=== PATIENT | female | born 1980 | race Caucasian/White ===

== ENCOUNTER 2019-12-30 20:18 | Emergency (ER) | payer OTHER ==
[~2019-12-30] VITALS: Ht 172.7 cm; Wt 91.0 kg
[2019-12-30 21:37] VITALS: BP 165/99
[2019-12-31] MEDS ORDERED: CEPH-264 PO (00:10)
--- NOTE | 2019-12-31 00:10 | PHYS DOC ---
Past History Past Medical History: Other Past Surgical History: Tonsillectomy, Other Alcohol Use: None Adult General Chief Complaint Chief Complaint: OTHER COMPLAINTS HPI HPI Patient is a 39 year old female who presents with complaint of puncture wound to the right foot. 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 As she was going through wooden planks she states that she accidentally stepped onto a plank with a needle sticking out of it. This went through the rubber sole of her boot and into the ball of her foot. She states that the puncture was superficial. She came to the emergency department as she is not up-to-date on tetanus immunization and was intending to receive a tetanus booster. Denies any other injuries. Has not taken any medications for her symptoms. Review of Systems Review of Systems Constitutional: Denies fever or chills [] Musculoskeletal: Denies back pain or joint pain [] Integument: Puncture wound to right foot, denies rash [] Neurologic: Denies headache, focal weakness or sensory changes [] All other systems were reviewed and found to be within normal limits, except as documented in this note. Current Medications Current Medications Current Medications Medications (Trade) Dose Ordered Sig/Verena Start Time Stop Time Status Last Admin Dose Admin Cephalexin HCl (Keflex) 500 mg 1X ONCE 12/31/19 00:30 12/31/19 00:31 Diphtheria/ Pertussis/Tetanus Vacc (ADACEL TDap SYRINGE) 0.5 ml ONCE ONCE 12/31/19 00:30 12/31/19 00:31 Allergies Allergies Allergies Coded Allergies Type Severity Reaction Last Updated Verified hydrocodone Allergy Unknown 12/30/19 Yes sulfamethoxazole Allergy Unknown 12/30/19 Yes trimethoprim Allergy Unknown 12/30/19 Yes Physical Exam Physical Exam Constitutional: Well developed, well nourished, no acute distress, non-toxic appearance. [] Skin: Warm, dry, no erythema, no rash. [] Extremities: Superficial puncture wound present over ball of right foot with mild direct tenderness, no surrounding induration or erythema, full range of motion in right foot is present. [] Neurologic: Alert and oriented X 3, normal motor function, normal sensory function, no focal deficits noted. [] Current Patient Data Vital Signs Vital Signs Date Time Temp Pulse Resp B/P (MAP) Pulse Ox O2 Delivery O2 Flow Rate FiO2 12/30/19 21:37 97.9 92 16 165/99 (121) 98 Room Air Lab Results Not performed EKG EKG Not performed [] Radiology/Procedures Radiology/Procedures Not performed [] Course & Med Decision Making Course & Med Decision Making Pertinent Labs and Imaging studies reviewed. (See chart for details) Patient was administered tetanus immunization in the emergency department. Given that the nail went through the sole of her shoe, I did consumer credit counselor patient on need for thorough wound care as her wound care is a higher risk of infection. The patient was started on oral Keflex and will continue on 5-day course for treatment. Advised follow-up with primary doctor in the next 3 to 5 days for reevaluation and advised return to the emergency department for any worsening symptoms. Patient voiced understanding and in agreement with treatment plan. [] Dragon Disclaimer Dragon Disclaimer This electronic medical record was generated, in whole or in part, using a voice recognition dictation system. Departure Departure: Impression: Primary Impression: Puncture wound of foot, right Additional Impression: Need for Tdap vaccination Disposition: HOME/RESIDENCE PRIOR TO ADM Condition: STABLE Referrals: SEGUNDO CANCHOLA (PCP) Patient Instructions: Puncture Wound Additional Instructions: Follow-up with your primary doctor in the next 3 to 5 days for reevaluation. Return to the emergency department for any worsening symptoms. Scripts Cephalexin (KEFLEX) 500 Mg Capsule 1 CAP PO BID for 5 Days, #10 CAP 0 Refills Prov: MARCIA CHAVEZ MD 12/31/19 Justification of Admission: Justification of Admission: Justification of Admission Dx: N/A Problem Qualifiers Primary Impression: Puncture wound of foot, right Encounter type: initial encounter Qualified Codes: S91.331A - Puncture wound without foreign body, right foot, initial encounter MARCIA CHAVEZ MD Dec 31, 2019 00:10
[2019-12-31] MEDS ORDERED: DIPH,PERTUSS(ACELL),TET VAC/PF 0.5 ML SYRINGE. VAX IM ONE (00:30)
[2019-12-31] MEDS ORDERED: CEPHALEXIN 250 MG CAPSULE PO ONE (00:30)
== END 2019-12-31 00:20 | disposition home or self-care (01) ==
LOC: ER 20:18
DX: S91.331A Puncture wound without foreign body, right foot, initial encounter (principal); Z23 Encounter for immunization; Z88.5 Allergy status to narcotic agent; Z88.2 Allergy status to sulfonamides; Z88.1 Allergy status to other antibiotic agents; W45.0XXA Nail entering through skin, initial encounter; Y93.89 Activity, other specified; Y92.89 Other specified places as the place of occurrence of the external cause; Y99.0 Civilian activity done for income or pay
CPT/HCPCS: 90471; 90715; 99283

== ENCOUNTER 2020-06-18 15:12 | Emergency (ER) | payer OTHER ==
[~2020-06-18] VITALS: Ht 172.7 cm; Wt 96.0 kg
[~2020-06-18 15:12] MED LIST: CEPH-264 PO
[2020-06-18 15:20] VITALS: BP 137/96
--- NOTE | 2020-06-18 15:48 | PHYS DOC ---
Past History Past Medical History: Other Additional Past Medical Histor: PCOS, dry eyes Past Surgical History: Tonsillectomy, Other Additional Past Surgical Histo: septoplasty Alcohol Use: None General Adult EDM: Chief Complaint: LOWER EXT PAIN HPI: HPI: Patient is a 40-year-old female who presents with left lower leg pain. Patient reports that pain started yesterday. Patient describes as a pinching pain goes up from her ankle up to the back of her knee. Patient reports calling her PCP prior to arrival and suggested to be seen in the emergency room for an u ltrasound. Patient has a family history of DVTs. Patient denies taking anything for pain. Pain is worse with movement. Patient has history of PCOS. Review of Systems: Review of Systems: Constitutional: Denies fever or chills Eyes: Denies change in visual acuity HENT: Denies nasal congestion or sore throat Respiratory: Denies cough or shortness of breath Cardiovascular: Denies chest pain or edema GI: Denies abdominal pain, nausea, vomiting, bloody stools or diarrhea : Denies dysuria Musculoskeletal: Reports left lower leg pain, denies back pain Integument: Denies rash Neurologic: Denies headache, focal weakness or sensory changes Endocrine: Denies polyuria or polydipsia Lymphatic: Denies swollen glands Psychiatric: Denies depression or anxiety Allergies: Allergies: Allergies Coded Allergies Type Severity Reaction Last Updated Verified hydrocodone Allergy Unknown 12/30/19 Yes sulfamethoxazole Allergy Unknown 12/30/19 Yes trimethoprim Allergy Unknown 12/30/19 Yes Physical Exam: PE: Constitutional: Well developed, well nourished, no acute distress, non-toxic appearance. [] HENT: Normocephalic, atraumatic, bilateral external ears normal, oropharynx moist, no oral exudates, nose normal. [] Eyes: PERRLA, EOMI, conjunctiva normal, no discharge. [] Neck: Normal range of motion, no tenderness, supple, no stridor. [] Cardiovascular:Heart rate regular rhythm, no murmur [] Lungs & Thorax: Bilateral breath sounds clear to auscultation [] Abdomen: Bowel sounds normal, soft, no tenderness, no masses, no pulsatile masses. [] Skin: Warm, dry, no erythema, no rash. [] Back: No tenderness, no CVA tenderness. [] Extremities: Left lower leg tenderness, no cyanosis, no clubbing, ROM intact, no edema, pulses intact [] Neurologic: Alert and oriented X 3, normal motor function, normal sensory function, no focal deficits noted. [] Psychologic: Affect normal, judgement normal, mood normal. [] Current Patient Data: Vital Signs: Vital Signs Date Time Temp Pulse Resp B/P (MAP) Pulse Ox O2 Delivery O2 Flow Rate FiO2 06/18/20 15:20 98.3 92 16 137/96 (110) 97 Room Air EKG: EKG: [] Radiology/Procedures: Radiology/Procedures: []NDICATION: Reason: left leg pain / Spl. Instructions: / History: COMPARISON: None. TECHNIQUE: Grayscale, color and doppler ultrasound images were obtained of the left lower extremity venous vasculature. LEFT: No thrombus identified in the common femoral vein, femoral vein, popliteal vein or visualized calf veins. IMPRESSION: * No thrombus identified in deep venous system of the left lower extremity. * 53 x 45 x 14 mm cystic structure within the popliteal fossa. Most common cause would be Schmid's cyst. Electronically signed by: Ryder Blackmon MD (06/18/2020 4:37 PM) [id number] Heart Score: C/O Chest Pain: No Risk Factors: Risk Factors: DM, Current or recent (<one month) smoker, HTN, HLP, family history of CAD, obesity. Risk Scores: Score 0 - 3: 2.5% MACE over next 6 weeks - Discharge Home Score 4 - 6: 20.3% MACE over next 6 weeks - Admit for Clinical Observation Score 7 - 10: 72.7% MACE over next 6 weeks - Early Invasive Strategies Course & Med Decision Making: Course & Med Decision Making Pertinent Labs and Imaging studies reviewed. (See chart for details) [] Patient is reporting left lower leg calf pain. Patient reports pain is a pinching. Pain radiates up to the back of her knee started yesterday. Denies injury.Ultrasound ordered to rule out DVT. Patient is reporting that she has a family history. Ultrasound of left lower leg shows a small Schmid's cyst. Negative for DVT. Dragon Disclaimer: Dragnayeli Disclaimer: This electronic medical record was generated, in whole or in part, using a voice recognition dictation system. Departure Departure: Impression: Primary Impression: Leg pain, left Disposition: 01 DC HOME SELF CARE/HOMELESS Condition: STABLE Referrals: SEGUNDO CANCHOLA (PCP) Patient Instructions: Pinched Nerve, Sciatica, [id number] Additional Instructions: You were seen in the emergency room for left lower leg pain. Ultrasound is negative for DVT. You most likely have sciatica. I am going to send you home with a muscle relaxer to take. Can also take ibuprofen for discomfort. Please return to the emergency room with worsening symptoms or concerns otherwise follow-up with your PCP. EMERGENCY DEPARTMENT GENERAL DISCHARGE INSTRUCTIONS Thank you for coming to [facility] (ED) today and trusting us with you care. We trust that you had a positivie experience in our Emergency Department. If you wish to speak to the department management, you may call the director at [phone]. YOUR FOLLOW UP INSTRUCTIONS ARE FOLLOWS: 1. Do you have a private Doctor? If you do not have a private doctor, please ask for a resource list of physicians or clinics that may be able to assist you with follow up care. 2. The Emergency Physician has interpreted your x-rays. The X-Ray specialist will also review them. If there is a change in the findings, you will be notified in 48 hours when at all possible. 3. A lab test or culture has been done, your results will be reviewed and you will be notified if you need a change in treatment. ADDITIONAL INSTRUCTIONS AND INFORMATION: 1. Your care today has been supervised by a physician who is specially trained in emergency care. Many problems require more than one evaluation for a complete diagnosis and treatment. We recommend that you schedule your follow up appointment as recommended to ensure complete treatment of you illness or injury. If you are unable to obtain follow up care and continue to have a problem, or if your condition worsens, we recommend that you return to the ED. 2. We are not able to safely determine your condition over the phone nor are we able to give sound medical advice over the phone. For these safety reasons, if you call for medical advice we will ask you to come to the ED for further evaluation. 3. If you have any questions regarding these discharge instructions please call the ED at [phone]. SAFETY INFORMATION: In the interest of safety, wellness, and injury prevention; we encourage you to wear your sealbelt, if you smoke; quite smoking, and we encourage family to use a protective helmet for bicycling and other sporting events that present an increased risk for head injury. IF YOUR SYMPTOMS WORSEN OR NEW SYMPTOMS DEVELOP, OR YOU HAVE CONCERNS ABOUT YOUR CONDITION; OR IF YOUR CONDITION WORSENS WHILE YOU ARE WAITING FOR YOUR FOLLOW UP APPOINTMENT; EITHER CONTACT YOUR PRIMARY CARE DOCTOR, THE PHYSICIAN WHOSE NAME AND NUMBER YOU WERE GIVEN, OR RETURN TO THE ED IMMEDIATELY. Scripts Cyclobenzaprine Hcl (CYCLOBENZAPRINE HCL) 10 Mg Tablet 1 TAB PO QHS for spasms, #30 TAB Prov: RIVER NAVARRETE APRN 06/18/20 RIVER NAVARRETE APRN Jun 18, 2020 15:48
--- NOTE | 2020-06-18 16:40 | RAD ---
INDICATION: Reason: left leg pain / Spl. Instructions: / History: COMPARISON: None. TECHNIQUE: Grayscale, color and doppler ultrasound images were obtained of the left lower extremity v enous vasculature. LEFT: No thrombus identified in the common femoral vein, femoral vein, popliteal vein or visualized calf ve ins. IMPRESSION: * No thrombus identified in deep venous system of the left lower extremity. * 53 x 45 x 14 mm cystic structure within the popliteal fossa. Most common cause would be Schmid's cy st. Electronically signed by: Ryder Blackmon MD (06/18/2020 4:37 PM) [id number]
[2020-06-18] MEDS ORDERED: CYCL-331 PO (16:56)
== END 2020-06-18 17:10 | disposition home or self-care (01) ==
LOC: ER 15:12
DX: M79.662 Pain in left lower leg (principal); Z90.89 Acquired absence of other organs; Z98.890 Other specified postprocedural states; Z88.5 Allergy status to narcotic agent; Z88.2 Allergy status to sulfonamides; Z88.8 Allergy status to other drugs, medicaments and biological substances
CPT/HCPCS: 93971; 99284

== ENCOUNTER 2021-01-02 12:47 | Emergency (ER) | payer OTHER ==
[~2021-01-02] VITALS: Ht 172.7 cm; Wt 98.6 kg
[~2021-01-02 12:47] MED LIST changes: +CYCL-331 PO
--- NOTE | 2021-01-02 13:25 | PHYS DOC ---
Past History Past Medical History: Other Additional Past Medical Histor: PCOS, dry eyes Past Surgical History: Tonsillectomy, Other Additional Past Surgical Histo: septoplasty Alcohol Use: None General Adult EDM: Chief Complaint: HYPERTENSION HPI: HPI: 40-year-old female presents with hypertension. She has been checking her blood pressure daily this week and it is consistently been 150s over 90s. This is higher than normal and she is concerned. She has also had some twinges of chest pain and shortness of breath. These episodes do not last very long and it feels like a pinching sensation and just makes her feel slightly short of breath. The symptoms are recent as well. The patient has had intermittent headache this week but is headache free at this time. [place] for 7 weeks. She has PCOS and is on spironolactone. She denies fever chills. She has no other complaints at this time. Review of Systems: Review of Systems: Constitutional: Denies fever or chills Eyes: Denies change in visual acuity HENT: Denies nasal congestion or sore throat Respiratory: shortness of breath Cardiovascular: Chest pain GI: Denies abdominal pain, nausea, vomiting, bloody stools or diarrhea : Denies dysuria Musculoskeletal: Denies back pain or joint pain Integument: Denies rash Neurologic: Denies headache, focal weakness or sensory changes Endocrine: Denies polyuria or polydipsia Lymphatic: Denies swollen glands Psychiatric: Denies depression or anxiety Allergies: Allergies: Allergies Coded Allergies Type Severity Reaction Last Updated Verified hydrocodone Allergy Unknown 12/30/19 Yes sulfamethoxazole Allergy Unknown 12/30/19 Yes trimethoprim Allergy Unknown 12/30/19 Yes Physical Exam: PE: Constitutional: Well developed, well nourished, obese, no acute distress, non- toxic appearance. [] HENT: Normocephalic, atraumatic, bilateral external ears normal, oropharynx moist, no oral exudates, nose normal. [] Eyes: PERRLA, EOMI, conjunctiva normal, no discharge. [] Neck: Normal range of motion, no tenderness, supple, no stridor. [] Cardiovascular: Heart rate 93, regular rhythm, no murmur [] Lungs & Thorax: Bilateral breath sounds clear to auscultation [] Abdomen: Bowel sounds normal, soft, no tenderness, no masses, no pulsatile masses. [] Skin: Warm, dry, no erythema, no rash. [] Back: No tenderness, no CVA tenderness. [] Extremities: No tenderness, no cyanosis, no clubbing, ROM intact, no edema. [] Neurologic: Alert and oriented X 3, normal motor function, normal sensory function, no focal deficits noted. [] Psychologic: Affect normal, judgement normal, mood normal. [] Current Patient Data: Vital Signs: Vital Signs Date Time Temp Pulse Resp B/P (MAP) Pulse Ox O2 Delivery O2 Flow Rate FiO2 01/02/21 13:06 97.3 99 16 152/104 (120) 98 Room Air EKG: EKG: Sinus rhythm, rate 82, normal axis, no ST elevation or depression. [] Radiology/Procedures: Radiology/Procedures: [] Impressions: INDICATION: Reason: SOB / Spl. Instructions: / History: COMPARISON: None. FINDINGS: Single view of chest obtained. No focal airspace consolidation. Cardiomediastinal contour unremarkable. No acute osseous abnormality. IMPRESSION: * No focal airspace consolidation or edema. Electronically signed by: Kinga Blackmon MD (01/02/2021 1:51 PM) [id number] DICTATED AND SIGNED BY: KINGA BLACKMON MD DATE: 01/02/21 135 CC: QIANA ÁLVAREZ DO; SEGUNDO CANCHOLA N ~MTH0 0 Heart Score: C/O Chest Pain: Yes HEART Score for Chest Pain: HEART Score for Chest Pain Response (Comments) Value History Slighlty/Non-Suspicious 0 ECG Normal 0 Age < 45 0 Risk Factors 1 or 2 Risk Factors 1 Troponin < Normal Limit 0 Total 1 Risk Factors: Risk Factors: DM, Current or recent (<one month) smoker, HTN, HLP, family hist ory of CAD, obesity. Risk Scores: Score 0 - 3: 2.5% MACE over next 6 weeks - Discharge Home Score 4 - 6: 20.3% MACE over next 6 weeks - Admit for Clinical Observation Score 7 - 10: 72.7% MACE over next 6 weeks - Early Invasive Strategies Course & Med Decision Making: Course & Med Decision Making Pertinent Labs and Imaging studies reviewed. (See chart for details) The patient's EKG is unremarkable. Her labs are unremarkable. Her troponin is negative. Her chest x-ray is negative for acute findings. The patient is hypertensive I have given her 20 mg of lisinopril and will discharge her with a prescription for these for 30 days so she can make an appoint with her doctor. She is stable for discharge at this time. [] Dwight Disclaimer: Dwight Disclaimer: This electronic medical record was generated, in whole or in part, using a voice recognition dictation system. Departure Departure: Impression: Primary Impression: Hypertension Qualified Codes: I10 - Essential (primary) hypertension Disposition: HOME / SELF CARE / HOMELESS Condition: STABLE Referrals: SEGUNDO CANCHOLA (PCP) Patient Instructions: Hypertension Scripts Lisinopril (LISINOPRIL) 20 Mg Tablet 1 TAB PO DAILY for hypertension, #30 TAB 0 Refills Prov: QIANA ÁLVAREZ DO 01/02/21 QIANA ÁLVAREZ DO Jan 02, 2021 13:24
[2021-01-02] MEDS ORDERED: LISINOPRIL 10 MG TABLET PO ONE (13:45)
[2021-01-02 13:48] LABS: U PREG PATIENT NEGATIVE (NEG)
--- NOTE | 2021-01-02 13:54 | RAD ---
INDICATION: Reason: SOB / Spl. Instructions: / History: COMPARISON: None. FINDINGS: Single view of chest obtained. No focal airspace consolidation. Cardiomediastinal contour unremarkable. No acute osseous abnormality. IMPRESSION: * No focal airspace consolidation or edema. Electronically signed by: Ryder Blackmon MD (01/02/2021 1:51 PM) [id number]
[2021-01-02 13:57] LABS: BILIRUBIN,URINE NEG (NEG); CLARITY,URINE CLEAR; COLOR,URINE YELLOW; GLUCOSE,URINE NEG (NEG); NITRITE,URINE NEG (NEG); UROBILINOGEN,URINE 0.2 mg/dL (0.2 mg/dL)
[2021-01-02 13:58] LABS: BACTERIA,URINE FEW /HPF (0-FEW); SQUAMOUS EPITHELIAL CELL,UR MOD /LPF; WBC,URINE OCC /HPF (0-4)
[2021-01-02 14:15] LABS: BASO # 0.1 x10^3/uL (0.0-0.2); BASO % 1 % (0-3); EOS # 0.1 x10^3/uL (0.0-0.7); EOS % 1 % (0-3); HEMATOCRIT 45.5 % (36.0-47.0); HEMOGLOBIN 15.2 g/dL (12.0-15.5); LYMPH # 2.1 x10^3/uL (1.0-4.8); LYMPH % 21 % (24-48); MEAN CORPUSCULAR HEMOGLOBIN 31 pg (25-35); MEAN CORPUSCULAR HGB CONC 33 g/dL (31-37); MEAN CORPUSCULAR VOLUME 94 fL (79-100); MONO # 0.7 x10^3/uL (0.0-1.1); MONO % 7 % (0-9); NEUT # 7.1 x10^3uL (1.8-7.7); NEUT % 70 % (31-73); PLATELET COUNT 411 x10^3/uL (140-400); RED BLOOD COUNT 4.84 x10^6/uL (3.50-5.40); RED CELL DISTRIBUTION WIDTH 12.8 % (11.5-14.5); WHITE BLOOD COUNT 10.1 x10^3/uL (4.0-11.0)
[2021-01-02 14:21] LABS: CALCIUM 9.9 mg/dL (8.5-10.1); CREATININE 0.7 mg/dL (0.6-1.0); GFR 91.8; POTASSIUM 4.4 mmol/L (3.5-5.1)
[2021-01-02 14:28] LABS: ALBUMIN 3.9 g/dL (3.4-5.0); TOTAL BILIRUBIN 0.4 mg/dL (0.2-1.0); TOTAL PROTEIN 7.9 g/dL (6.4-8.2)
[2021-01-02] MEDS ORDERED: LISI20TA18 PO (14:44)
[2021-01-02 14:52] VITALS: BP 145/92
--- NOTE | 2021-01-02 19:49 | EKG ---
[address] [address] Test Date: 2021-01-02 Test Time: 13:20:58 Pat Name: JOIE LUDWIG Department: Room: Gender: F Janitor Caretaker: : 1980 Requested By: QIANA ÁLVAREZ Order Number: [id number] Reading MD: Andrew Booth Measurements Intervals [place] Rate: 82 P: 59 KS: 142 QRS: 9 QRSD: 76 T: 16 QT: 346 QTc: 407 Interpretive Statements SINUS RHYTHM NORMAL ECG RI6.02 No previous ECG available for comparison Electronically Signed On 01-07-2021 12:57:01 CDT by Andrew Booth
== END 2021-01-02 15:05 | disposition home or self-care (01) ==
LOC: ER 12:47
DX: I10 Essential (primary) hypertension (principal); Z88.5 Allergy status to narcotic agent; Z88.2 Allergy status to sulfonamides; Z88.1 Allergy status to other antibiotic agents
CPT/HCPCS: 36415; 71045; 80053; 81001; 81025; 84484; 85025; 93005; 99285

== ENCOUNTER 2021-04-19 06:27 | Emergency (ER) | payer OTHER ==
[~2021-04-19] VITALS: Ht 172.7 cm; Wt 97.0 kg
[~2021-04-19 06:27] MED LIST changes: -CYCL-331 PO; +CYCL10TA19 PO; +LISI20TA18 PO
--- NOTE | 2021-04-19 06:55 | PHYS DOC ---
Past History Past Medical History: Other Additional Past Medical Histor: PCOS, dry eyes Past Surgical History: Tonsillectomy, Other Additional Past Surgical Histo: septoplasty Alcohol Use: None Adult General Chief Complaint Chief Complaint: UPPER EXTREMITY PAIN HPI HPI Patient is a 41-year-old female presenting via POV for chest pain. Onset was yesterday evening while at rest. Stated she had some substernal chest pressure and belching with radiation to right shoulder. States she took some Tums with relief of symptoms. Later she started having recurrent chest pressure that went to her left upper extremity down her left arm which concerned her. She called her [facility] nurse who ultimately recommended she come in for evaluation. Patient has history of PCOS otherwise no other pertinent medical issues. Denies any tobacco alcohol or drug use. No early cardiac disease in immediate family. No recent long distance travel, hemoptysis, sick contacts or estrogen use. She is fully vaccinated against COVID-19 Review of Systems Review of Systems Fourteen body systems of review of systems have been reviewed. See HPI for pertinent positives and negative responses, other bergman all other systems are negative, non-pertinent or non-contributory Allergies Allergies Allergies Coded Allergies Type Severity Reaction Last Updated Verified hydrocodone Allergy Unknown 12/30/19 Yes sulfamethoxazole Allergy Unknown 12/30/19 Yes trimethoprim Allergy Unknown 12/30/19 Yes Physical Exam Physical Exam Constitutional: Well developed, well nourished, no acute distress, non-toxic appearance. HENT: Normocephalic, atraumatic, bilateral external ears normal, oropharynx moist, no oral exudates, nose normal. Eyes: PERRLA, EOMI, conjunctiva normal, no discharge. Neck: Normal range of motion, no tenderness, supple, no stridor. Cardiovascular: Heart rate regular, sinus rhythm, no murmurs rubs or gallops Lungs & Thorax: Bilateral breath sounds clear to auscultation Abdomen: Bowel sounds normal, soft, no tenderness, no masses, no pulsatile masses. Nonsurgical abdomen, no peritoneal signs Skin: Warm, dry, no erythema, no rash. Back: No tenderness, no CVA tenderness. Extremities: No tenderness, no cyanosis, no clubbing, ROM intact, no edema. Neurologic: Alert and oriented X 3, grossly normal motor & sensory function, no focal deficits noted. Psychologic: Affect normal, judgement normal, mood normal. Current Patient Data Vital Signs Vital Signs Date Time Temp Pulse Resp B/P (MAP) Pulse Ox O2 Delivery O2 Flow Rate FiO2 04/19/21 06:50 97.6 92 18 127/102 (110) 97 Vital Signs Date Time Temp Pulse Resp B/P (MAP) Pulse Ox O2 Delivery O2 Flow Rate FiO2 04/19/21 06:50 97.6 92 18 127/102 (110) 97 Lab Results Laboratory Tests Test 04/19/21 07:30 White Blood Count 9.7 x10^3/uL Red Blood Count 4.65 x10^6/uL Hemoglobin 14.7 g/dL Hematocrit 44.1 % Mean Corpuscular Volume 95 fL Mean Corpuscular Hemoglobin 32 pg Mean Corpuscular Hemoglobin Concent 33 g/dL Red Cell Distribution Width 12.8 % Platelet Count 442 x10^3/uL Neutrophils (%) (Auto) 72 % Lymphocytes (%) (Auto) 23 % Monocytes (%) (Auto) 4 % Eosinophils (%) (Auto) 0 % Basophils (%) (Auto) 0 % Neutrophils # (Auto) 6.9 x10^3uL Lymphocytes # (Auto) 2.3 x10^3/uL Monocytes # (Auto) 0.4 x10^3/uL Eosinophils # (Auto) 0.0 x10^3/uL Basophils # (Auto) 0.0 x10^3/uL Sodium Level 138 mmol/L Potassium Level 4.8 mmol/L Chloride Level 101 mmol/L Carbon Dioxide Level 26 mmol/L Anion Gap 11 Blood Urea Nitrogen 8 mg/dL Creatinine 0.7 mg/dL Estimated GFR (Cockcroft-Gault) 91.3 Glucose Level 106 mg/dL Calcium Level 9.9 mg/dL Troponin I High Sensitivity 5 ng/L Current Medications Medications (Trade) Dose Ordered Sig/Verena Route PRN Reason Start Time Stop Time Status Last Admin Dose Admin Aspirin (Yung Aspirin) 325 mg 1X ONCE PO 04/19/21 07:15 04/19/21 07:16 DC 04/19/21 07:26 Nitroglycerin (Nitrostat) 0.4 mg PRN Q5MIN PRN SL CP RATING > /10 04/19/21 07:15 04/20/21 07:14 EKG EKG EKG ordered and interpreted by myself at 0649 hrs. as sinus rhythm at 89 bpm, unremarkable intervals, no axis deviation, no acute ischemic findings, no STEMI Radiology/Procedures Radiology/Procedures Exam Date: 04/19/2021 7:12 AM XR CHEST 1V Indication: Reason: chest pain, back pain, shortness of breath, arm pain / Spl. Instructions: / History: . Comparison: January 02, 2021 FINDINGS/ IMPRESSION: Lung apices are partially excluded. The cardiac silhouette and pulmonary vasculature are within normal limits. There is no focal consolidation, pleural effusion or pneumothorax. The visualized osseous structures are intact. Electronically signed by: Gerald Peralta MD (04/19/2021 7:50 AM) [id number] Heart Score C/O Chest Pain: Yes HEART Score for Chest Pain: HEART Score for Chest Pain Response (Comments) Value History Slighlty/Non-Suspicious 0 ECG Normal 0 Age < 45 0 Risk Factors 1 or 2 Risk Factors 1 Troponin < Normal Limit 0 Total 1 Risk Factors: Risk Factors: DM, Current or recent (<one month) smoker, HTN, HLP, family history of CAD, obesity. Risk Scores: Risk Factors: DM, Current or recent (<one month) smoker, HTN, HLP, family history of CAD, obesity. Course & Med Decision Making Course & Med Decision Making ABCs unremarkable HPI physical exam and comprehensive ER work-up nonconcerning for any emergent or surgical issues I disclose this might be an acute presentation more concerning pathology but after reviewing PERC negative and low heart score, joint decision made to discharge home with continued supportive care and close PCP follow-up for co ntinued outpatient work-up Dragon Disclaimer Dragnayeli Disclaimer This electronic medical record was generated, in whole or in part, using a voice recognition dictation system. PERC Rule for PE PERC Rule for PE Response (Comments) Value Age > 50: No 0 HR > 100: No 0 Sa02 on room air <95%: No 0 Unilateral leg swelling: No 0 Hemoptysis: No 0 Recent surgery or trauma: No 0 Prior PE or DVT: No 0 Hormone use: No 0 Total 0 Departure Departure: Impression: Primary Impression: Atypical chest pain Disposition: HOME / SELF CARE / HOMELESS Condition: STABLE Referrals: SEGUNDO CANCHOLA (PCP) Additional Instructions: You were seen for chest and upper extremity discomfort. Your workup did not show any acute abnormalities today, but does not indicate that you do not have underlying cardiovascular disease. You do need to follow up with your primary doctor and potentially a meter mechanic for further evaluation and treatment. You should discuss need for outpatient cardiac stress test and/or echocardiogram with your primary care physician. You should avoid alcohol, spicy foods, or NSAIDs as these can exacerbate your symptoms. You can discussed need to start a PPI, H2 paco or bismuth subsalicylate with your primary care physician to attempt to alleviate your symptoms. You should return to the ED if you develop worsening chest pain, shortness of breath, fever, abnormal sweating, leg swelling, or any other new or concerning symptoms. HUONG NUNN DO Apr 19, 2021 06:55
[2021-04-19] MEDS ORDERED: NITROGLYCERIN SUBLINGUAL 0.4 MG BOTTLE OF 25. SL PRN (07:15)
[2021-04-19] MEDS ORDERED: ASPIRIN 325 MG TABLET PO ONE (07:15)
--- NOTE | 2021-04-19 07:52 | RAD ---
Exam Date: 04/19/2021 7:12 AM XR CHEST 1V Indication: Reason: chest pain, back pain, shortness of breath, arm pain / Spl. Instructions: / Hist ory: . Comparison: January 02, 2021 FINDINGS/ IMPRESSION: Lung apices are partially excluded. The cardiac silhouette and pulmonary vasculature are within normal limits. There is no focal consolidation, pleural effusion or pneumothorax. The visualized osseous structures are intact. Electronically signed by: Gerald Peralta MD (04/19/2021 7:50 AM) [id number]
[2021-04-19 08:03] LABS: BASO % 0 % (0-3); EOS % 0 % (0-3); HEMATOCRIT 44.1 % (36.0-47.0); HEMOGLOBIN 14.7 g/dL (12.0-15.5); LYMPH # 2.3 x10^3/uL (1.0-4.8); LYMPH % 23 % (24-48); MEAN CORPUSCULAR HEMOGLOBIN 32 pg (25-35); MEAN CORPUSCULAR HGB CONC 33 g/dL (31-37); MEAN CORPUSCULAR VOLUME 95 fL (79-100); MONO # 0.4 x10^3/uL (0.0-1.1); MONO % 4 % (0-9); NEUT # 6.9 x10^3uL (1.8-7.7); NEUT % 72 % (31-73); PLATELET COUNT 442 x10^3/uL (140-400); RED BLOOD COUNT 4.65 x10^6/uL (3.50-5.40); RED CELL DISTRIBUTION WIDTH 12.8 % (11.5-14.5); WHITE BLOOD COUNT 9.7 x10^3/uL (4.0-11.0)
[2021-04-19 08:05] LABS: CALCIUM 9.9 mg/dL (8.5-10.1); CREATININE 0.7 mg/dL (0.6-1.0); GFR 91.3; POTASSIUM 4.8 mmol/L (3.5-5.1)
[2021-04-19 08:39] VITALS: BP 122/86
== END 2021-04-19 08:40 | disposition home or self-care (01) ==
LOC: ER 06:27
DX: R07.2 Precordial pain (principal); Z88.5 Allergy status to narcotic agent; Z88.2 Allergy status to sulfonamides; Z88.1 Allergy status to other antibiotic agents
CPT/HCPCS: 36415; 71045; 80048; 84484; 85025; 93005; 99285

== ENCOUNTER 2021-07-21 23:14 | Emergency (ER) | payer OTHER ==
[~2021-07-21] VITALS: Ht 172.7 cm; Wt 90.1 kg
--- NOTE | 2021-07-21 23:21 | PHYS DOC ---
Past History Past Medical History: Other Additional Past Medical Histor: PCOS, dry eyes Past Surgical History: Tonsillectomy, Other Additional Past Surgical Histo: septoplasty, tubes in ears Alcohol Use: None Adult General HPI HPI Patient is a 41-year-old female who presents with multiple complaints. States she was diagnosed with colitis about a week ago and started on Cipro and Flagyl and a few days ago had a colonoscopy and was told she had ischemic colitis but was not referred to an emergency department or hospital. States she is due for an outpatient CT a of her abdomen next week. States she is having some generalized abdominal discomfort, 4-10, dull and achy in nature and some tingling in her feet bilaterally. Denies any recent travel, traumas, illnesses, chest pain, shortness of breath, nausea, vomiting, diarrhea, dysuria, hematuria, blood in the stool. Denies any vaginal bleeding, discharge or pain, history of STIs or concern of that. Review of Systems Review of Systems Review of systems otherwise unremarkable except noted in HPI Allergies Allergies Allergies Coded Allergies Type Severity Reaction Last Updated Verified hydrochlorothiazide Allergy Unknown 04/19/21 Yes hydrocodone Allergy Unknown 12/30/19 Yes sulfamethoxazole Allergy Unknown 12/30/19 Yes trimethoprim Allergy Unknown 12/30/19 Yes Physical Exam Physical Exam Constitutional: Well developed, well nourished, no acute distress, non-toxic appearance. [] HENT: Normocephalic, atraumatic, bilateral external ears normal, oropharynx moist, no oral exudates, nose normal. [] Eyes: conjunctiva normal, no discharge. [] Neck: Normal range of motion, no tenderness, supple, no stridor. [] Cardiovascular:Heart rate regular rhythm, no murmur [] Lungs & Thorax: Bilateral breath sounds clear to auscultation [] Abdomen: soft, no tenderness, no masses, no pulsatile masses. [] Skin: Warm, dry, no erythema, no rash. [] Back: No tenderness, no CVA tenderness. [] Extremities: No tenderness, no cyanosis, no clubbing, ROM intact, no edema. [] Neurologic: Alert and oriented X 3, normal motor function, normal sensory function, able to sit, stand and walk without issue no focal deficits noted. [] Psychologic: Affect normal, judgement normal, mood normal. [] EKG EKG [] Radiology/Procedures Radiology/Procedures [] Heart Score C/O Chest Pain: No Risk Factors: Risk Factors: DM, Current or recent (<one month) smoker, HTN, HLP, family history of CAD, obesity. Risk Scores: Risk Factors: DM, Current or recent (<one month) smoker, HTN, HLP, family history of CAD, obesity. Course & Med Decision Making Course & Med Decision Making Patient is a 41-year-old female who presents with multiple complaints, most notable for abdominal discomfort and endorsing history of recent ischemic colitis diagnosis from a colonoscopy Vital signs notable for fever, tachycardia and hypertension. Physical exam noted above. Placed on the monitor with IV access established IV fluid given. Given pain medicine. Laboratory analysis not concerning other than a mildly elevated lactate. Vital signs improved while in the ED. Symptoms improved. Imaging with no concern for ischemic colitis or other abdominal findings Discussed all findings with patient. Advised to continue her antibiotics as prescribed. Discussed symptom management at home. Advised to follow-up this morning with primary care physician. Gave return precautions to the ED Patient grateful, verbalized understanding and agreed with plan of discharge. Dragon Disclaimer Dragon Disclaimer This electronic medical record was generated, in whole or in part, using a voice recognition dictation system. Departure Departure: Impression: Primary Impression: Abdominal pain Disposition: HOME / SELF CARE / HOMELESS Condition: STABLE Referrals: SEGUNDO CANCHOLA (PCP) Patient Instructions: Abdominal Pain (Nonspecific) Additional Instructions: Thank you for coming into the emergency department tonight and allowing us to take care of you. Please read the attached information carefully to go over things we discussed. You can take Tylenol, ibuprofen, and Benadryl as needed at home for symptom control. Please follow-up first thing in the morning with your primary care physician update on your ED visit and set up a follow-up. Please take your prescription pain medicine every 6 hours. Please do not exceed 3000 mg of Tylenol daily please come back with new or concerning symptoms as we discussed. STEPHANIE NEWMAN MD Jul 21, 2021 23:21
[2021-07-21] MEDS ORDERED: CONTRAST GIVEN. MC PRN (23:45)
[2021-07-22] MEDS: ONDANSETRON PF 4 MG/2 ML VIAL. IVP ONE
--- NOTE | 2021-07-22 00:18 | EKG ---
[address] [address] Test Date: 2021-07-21 Test Time: 23:38:45 Pat Name: JIOE LUDWIG Department: Room: Gender: F Emergency Preparedness Manager: GABRIELA : 1980 Requested By: STEPHANIE NEWMAN Order Number: [id number] Reading MD: Measurements Intervals [place] Rate: 86 P: 90 CT: 148 QRS: 31 QRSD: 72 T: 24 QT: 356 QTc: 429 Interpretive Statements SINUS RHYTHM QRS(T) CONTOUR ABNORMALITY CONSIDER ANTEROLATERAL MYOCARDIAL DAMAGE POSSIBLY ABNORMAL ECG RI6.01 No previous ECG available for comparison
[2021-07-22] MEDS: IOHEXOL 350 MG/ML 100 ML VIAL. IV ONE (00:20)
[2021-07-22 00:22] LABS: BASO % 0 % (0-3); EOS # 0.2 x10^3/uL (0.0-0.7); EOS % 1 % (0-3); HEMATOCRIT 44.5 % (36.0-47.0); LYMPH # 2.4 x10^3/uL (1.0-4.8); LYMPH % 20 % (24-48); MEAN CORPUSCULAR HEMOGLOBIN 32 pg (25-35); MEAN CORPUSCULAR HGB CONC 34 g/dL (31-37); MEAN CORPUSCULAR VOLUME 94 fL (79-100); MONO # 0.8 x10^3/uL (0.0-1.1); MONO % 7 % (0-9); NEUT # 8.4 x10^3uL (1.8-7.7); NEUT % 72 % (31-73); PLATELET COUNT 423 x10^3/uL (140-400); RED BLOOD COUNT 4.73 x10^6/uL (3.50-5.40); RED CELL DISTRIBUTION WIDTH 12.6 % (11.5-14.5); WHITE BLOOD COUNT 11.8 x10^3/uL (4.0-11.0)
[2021-07-22 00:29] LABS: CALCIUM 9.5 mg/dL (8.5-10.1); CREATININE 0.8 mg/dL (0.6-1.0); GFR 78.3; POTASSIUM 4.4 mmol/L (3.5-5.1)
[2021-07-22 00:35] LABS: ALBUMIN 3.9 g/dL (3.4-5.0); ALBUMIN/GLOBULIN RATIO 1.1 (1.0-1.7); TOTAL BILIRUBIN 0.6 mg/dL (0.2-1.0); TOTAL PROTEIN 7.3 g/dL (6.4-8.2)
--- NOTE | 2021-07-22 01:17 | RAD ---
CT angiography abdomen and pelvis with contrast PQRS statement: CT scans at this facility use dose reduction including either automated exposure cont rol, iterative reconstructions, and /or weight based radiation dosing via mA and kV modification when appropriate to reduce radiation dose to as low as reasonably achievable. HISTORY: Ischemic colitis. Contrast: 100 mL Omnipaque 350 intravenous contrast with 3-D MIP reconstructions of the arteries acqu ired. Abdomen findings: No plaque, aneurysm, thrombus, stenosis or occlusion of the abdominal aorta or abdo arlette arteries. Geographic areas of hypodensity throughout the liver parenchyma most likely geographi c liver steatosis. Kidneys, adrenals, pancreas, spleen, gallbladder unremarkable. Appendix is normal. There is no obstruction or inflammation of the GI tract including the large bowel. There is no wall thickening or edema evident to suggest colitis. No abdominal fluid or adenopathy. Lung bases and bone s are unremarkable. Pelvis findings: No plaque, stenosis, thrombus, occlusion, aneurysm or dissection of the iliac arteri es. Uterus retroverted. Ovaries, bladder, rectum and bones are normal. No pelvic fluid or adenopathy. IMPRESSION: 1. Normal CT angiogram of the abdomen and pelvis. No acute process in the abdomen or pelvis. Appendix is normal. See above. 2. Geographic steatosis of the liver. Electronically signed by: Ham Nicholas MD (07/22/2021 1:15 AM) [facility]
[2021-07-22] MEDS: ACETAMINOPHEN/CODEINE 300/30MG 4TABLET STARTPACK. PO ONE (01:48)
[2021-07-22] MEDS: ONDANSETRON 4MG ODT 4TABLET STARTPACK. PO ONE (01:48)
[2021-07-22 01:50] VITALS: BP 144/92
== END 2021-07-22 01:52 | disposition home or self-care (01) ==
LOC: ER 23:14
DX: R10.84 Generalized abdominal pain (principal); R20.2 Paresthesia of skin; Z88.5 Allergy status to narcotic agent; Z88.2 Allergy status to sulfonamides; Z88.1 Allergy status to other antibiotic agents; Z88.8 Allergy status to other drugs, medicaments and biological substances
CPT/HCPCS: 36415; 74174; 80053; 81025; 83605; 83690; 84484; 85025; 93005; 96374; 96375; 99285; J2405; J3010; Q0162; Q9967